=== PATIENT | female | born 1945 | race Caucasian/White ===

== ENCOUNTER → 2016-10-10 | Outpatient (CLI) | payer OTHER, MEDICARE ==
[~2016-10-10] MED LIST: ALPR-411 PO; DOMPERIDONE 10 MG; FEXO1TAB49 PO; GABA-112 PO; MULT-614 PO; OMEP20CA59 PO; PROP10TA7 PO; SERT50TA PO; TRIA1SPR4 NAE; ZOLE5INJ IV.
--- NOTE | 2016-10-10 14:49 | DIAGNOSTIC IMAGING REPORT ---
SINUSES MIN 3 VIEWS ROUTINE CLINICAL HISTORY: J32.9 Sinusitis COMPARISON STUDY: None FINDINGS: All major sinuses are clear. Osseous structures are intact. IMPRESSION: Normal study Electronically signed by: Derian Velasco M.D. 10/10/2016 2:48 PM Dictated Date/Time: 10/10/2016 2:47 PM
== END | disposition home or self-care (01) ==
LOC: C.RAD1850 14:36
PROVIDERS: ATTEND Internal Medicine
DX: J32.9 Chronic sinusitis, unspecified (principal)

== ENCOUNTER → 2017-02-23 | Outpatient (CLI) | payer OTHER, MEDICARE ==
--- NOTE | 2017-02-23 12:07 | DIAGNOSTIC IMAGING REPORT ---
LUMBAR SPINE W/O CONTRAST CLINICAL HISTORY: 71 years-old Female presenting with SPINAL STENOSIS; LUMBAR RADICULOPATHY. TECHNIQUE: Multisequence, multiplanar MR imaging of the lumbar spine was performed without the use of intravenous contrast. IV contrast: None. COMPARISON: 01/31/2015. FINDINGS: Vertebral bodies maintain normal height, alignment, and bone marrow signal intensity with the exception of sclerotic endplate changes anteriorly at L2-3. Intervertebral disc height loss at L2-3 and desiccation at L3-4. Mild multilevel degenerative changes detailed below: T12-L1: Normal. L1-2: Normal. L2-3: Anterior osteophytosis and disc bulge. Mild bilateral neural foraminal narrowing results at L2-3 with possible abutment of the exiting L2 nerve roots. Effacement of the ventral thecal sac without impingement of the cauda equina. L3-4: Minimal disc bulge results in mild right neural foraminal narrowing and possible abutment of the exiting right L3 nerve root. L4-5: Mild disc bulge in combination with ligamentum flavum thickening at L4-5 results in effacement of the ventral and posterior thecal sac without evidence of cauda equina impingement. Mild right and moderate left neural foraminal narrowing. Abutment of the bilateral exiting L4 nerve roots. L5-S1: Normal. Spinal cord ends in good position at the superior endplate of L1. Cauda equina normal. No bony or paraspinal edema. Paraspinal soft tissues within normal limits. IMPRESSION: Multilevel degenerative changes. Spinal stenosis without evidence of cauda equina impingement. Varying degrees of neural foraminal narrowing most severe at L4-5 further detailed above. Electronically signed by: Avi Styles M.D. 02/23/2017 12:06 PM Dictated Date/Time: 02/23/2017 11:58 AM
== END | disposition home or self-care (01) ==
LOC: C.MRIBC 10:38
PROVIDERS: ATTEND Anesthesiology
DX: M54.16 Radiculopathy, lumbar region (principal); M48.06 Spinal stenosis, lumbar region

== ENCOUNTER → 2017-04-17 | Outpatient (CLI) | payer OTHER, MEDICARE ==
[2017-04-17 17:39] LABS: BASO % 0.1 %; BASO ABS # 0.01 K/uL (0-0.2); COMPLETE YES; EOS % 2.1 %; HEMATOCRIT 38.6 % (37-47); IG% 0.2 %; LYMPH % 32.4 %; LYMPH ABS # 2.82 K/uL (1.2-3.4); MEAN CELL VOLUME 90.2 fL (80-100); MEAN CORPUSCULAR HEMOGLOBIN 28.5 pg (25-34); MEAN CORPUSCULAR HGB CONC 31.6 g/dl (32-36); MEAN PLATELET VOLUME 9.9 fL (7.4-10.4); MONO % 9.9 %; NEUT % 55.3 %; PLATELET COUNT 349 K/uL (130-400); RED BLOOD COUNT 4.28 M/uL (4.2-5.4); WHITE BLOOD COUNT 8.71 K/uL (4.8-10.8)
[2017-04-17 18:54] LABS: LYME DISEASE AB IGG NEG (NEG)
[2017-04-17 18:57] LABS: LYME DISEASE AB IGM EQUIVOCAL (NEG)
[2017-04-21 23:35] LABS: 18KDIGG BAND NONREACTIVE (NONREACTIVE); 23KDIGG BAND NONREACTIVE (NONREACTIVE); 23KDIGM BAND NONREACTIVE (NONREACTIVE); 28KDIGG BAND NONREACTIVE (NONREACTIVE); 30KDIGG BAND REACTIVE (NONREACTIVE); 39KDIGG BAND NONREACTIVE (NONREACTIVE); 39KDIGM BAND NONREACTIVE (NONREACTIVE); 41KDIGG BAND NONREACTIVE (NONREACTIVE); 41KDIGM BAND NONREACTIVE (NONREACTIVE); 45KDIGG BAND NONREACTIVE (NONREACTIVE); 58KDIGG BAND NONREACTIVE (NONREACTIVE); 66KDIGG BAND NONREACTIVE (NONREACTIVE); 93KDIGG BAND NONREACTIVE (NONREACTIVE)
== END | disposition home or self-care (01) ==
LOC: C.LAB1850 16:35
PROVIDERS: ATTEND Internal Medicine
DX: M25.50 Pain in unspecified joint (principal)

== ENCOUNTER → 2017-06-17 | Outpatient (CLI) | payer OTHER, MEDICARE ==
[~2017-06-17] MED LIST changes: -GABA-112 PO
[2017-06-17 13:31] LABS: URINE APPEARANCE CLOUDY (CLEAR); URINE BILIRUBIN NEG (NEG); URINE COLOR DK YELLOW; URINE EPITHELIAL CELL AUTO 20-30 /lpf (0-5); URINE NITRITE NEG (NEG); URINE PH 6.5 (4.5-7.5); URINE SPECIFIC GRAVITY 1.022 (1.000-1.030); UROBILINOGEN NEG (NEG)
[2017-06-17 13:36] LABS: MANUAL MICROSCOPIC REQUIRED? NO; REVIEW REQ? NO
== END | disposition home or self-care (01) ==
LOC: C.LAB1850 11:45
PROVIDERS: ATTEND Internal Medicine
DX: N39.0 Urinary tract infection, site not specified (principal)

== ENCOUNTER → 2017-08-20 | Outpatient (CLI) | payer OTHER, MEDICARE ==
[2017-08-20 14:03] LABS: URINE APPEARANCE CLOUDY (CLEAR); URINE BACTERIA AUTO NEG (NEG); URINE BILIRUBIN NEG (NEG); URINE BLOOD HGB 2+ (NEG); URINE COLOR DK YELLOW; URINE GLUCOSE(DIPSTICK) NEG (NEG); URINE KETONES NEG (NEG); URINE LEUKOCYTE ESTERASE LARGE (NEG); URINE NITRITE NEG (NEG); URINE PROTEIN(DIPSTICK) TRACE (NEG); URINE RBC AUTO >30 /hpf (0-4); URINE SPECIFIC GRAVITY 1.023 (1.000-1.030); URINE WBC AUTO >30 /hpf (0-5); UROBILINOGEN NEG (NEG)
[2017-08-20 14:12] LABS: MANUAL MICROSCOPIC REQUIRED? NO; REVIEW REQ? NO
== END | disposition home or self-care (01) ==
LOC: C.LAB1850 11:29
DX: N39.0 Urinary tract infection, site not specified (principal)

== ENCOUNTER → 2017-09-25 | Outpatient (CLI) | payer OTHER, MEDICARE ==
[~2017-09-25] MED LIST changes: -DOMPERIDONE 10 MG; +DOMPERIDONE 10 MG PO
[2017-09-25 16:33] LABS: BASO % 0.1 %; BASO ABS # 0.01 K/uL (0-0.2); EOS % 1.7 %; EOS ABS # 0.12 K/uL (0-0.5); HEMOGLOBIN 12.3 g/dL (12.0-16.0); IG# 0.01 K/uL (0.00-0.02); LYMPH % 38.8 %; LYMPH ABS # 2.81 K/uL (1.2-3.4); MEAN CELL VOLUME 87.6 fL (80-100); MEAN CORPUSCULAR HEMOGLOBIN 28.3 pg (25-34); MEAN CORPUSCULAR HGB CONC 32.4 g/dl (32-36); MEAN PLATELET VOLUME 10.1 fL (7.4-10.4); MONO ABS # 0.65 K/uL (0.11-0.59); NEUT % 50.3 %; NEUT ABS # 3.65 K/uL (1.4-6.5); PLATELET COUNT 327 K/uL (130-400); WHITE BLOOD COUNT 7.25 K/uL (4.8-10.8)
[2017-09-25 17:14] LABS: ALBUMIN 3.7 gm/dl (3.4-5.0); BLOOD UREA NITROGEN 20 mg/dl (7-18); CALCIUM 9.2 mg/dl (8.5-10.1); CARBON DIOXIDE 28 mmol/L (21-32); CREATININE 0.52 mg/dl (0.60-1.20); GLUCOSE 73 mg/dl (70-99); POTASSIUM 3.6 mmol/L (3.5-5.1); SODIUM 139 mmol/L (136-145)
== END | disposition home or self-care (01) ==
LOC: C.LAB1850 14:56
PROVIDERS: ATTEND Internal Medicine
DX: M79.1 Myalgia (principal); M81.0 Age-related osteoporosis without current pathological fracture; Z78.0 Asymptomatic menopausal state

== ENCOUNTER → 2017-09-30 | Day surgery (SDC) | payer OTHER, MEDICARE ==
[~2017-09-30] VITALS: Ht 152.4 cm; Wt 54.6 kg
[~2017-09-30] MED LIST changes: +GENERAL ORDER PROBLEM SCH; +ZOLEDRONIC ACID INJ 5 MG in EMPTY BAG 0 ML IV SCH
[2017-09-30 11:22] VITALS: BP 113/68; PULSE 81; TEMP 36.5; O2SAT 96; Ht 152.4 cm; Wt 54.6 kg
== END | disposition home or self-care (01) ==
LOC: C.MTU 11:09
PROVIDERS: ATTEND Internal Medicine
DX: M81.0 Age-related osteoporosis without current pathological fracture (principal)

== ENCOUNTER → 2017-11-24 | Day surgery (SDC) | payer OTHER, MEDICARE ==
[2017-10-20 09:22] VITALS: Ht 152.4 cm; Wt 54.5 kg
[~2017-11-24] VITALS: Ht 152.4 cm; Wt 54.5 kg
[~2017-11-24] MED LIST changes: +500ML BSS 0.3ML EPI 1:1000PF IRRIG ONE; +ACETAMINOPHEN 325 MG TAB PO PRN; +AMVISC PLUS 0.8ML SYRINGE INT OCU ONE; +ATROPINE SULFATE 0.1 MG/ML 5ML SYR IV PRN; +BSS FLUSH ONE; -DOMPERIDONE 10 MG PO; +DOMPERIDONE PO; +EpHEDrine SULFATE INJ 50 MG/ML AMP IV PRN; +EpINEphrine INJ 1MG/ML AMP 1 MG/ML AMP ONE; -GENERAL ORDER PROBLEM SCH; +GLUC1TAB94 PO; +LACTATED RINGER'S 1000ML 500 ML IV SCH; +LIDOCAINE 3.5% OPH GEL PER APPLICATION CHARGE ONE; +LIDOCAINE HCL 1% MPF 2 ML VIAL ONE; +MELO7.5T5 PO; +MIDAZOLAM HCL 1 MG/ML 2ML VIAL ONE; -MULT-614 PO; +MULT60CA PO; +OCUCOAT 1 ML SOLN IO ONE; -OMEP20CA59 PO; +PHENYLEPHRINE HCL 10% OP SOLN PER DROP CHARGE OPR SCH; +POVIDONE-IODINE OP SOLN 30 ML BTL ONE; +PRLSR20 PO; -PROP10TA7 PO; +PROP20TA67 PO; +PROPARACAINE 0.5% OP SOLN PER DROP CHARGE OPR SCH; +SERT-234 PO; -SERT50TA PO; +TOBRAMYCIN/DEXAMETHASONE OPH OINT PER APPLN CHARGE ONE; -TRIA1SPR4 NAE; +TRIA1SPR9 NAE; +ZOLE5INJ IV; -ZOLE5INJ IV.; -ZOLEDRONIC ACID INJ 5 MG in EMPTY BAG 0 ML IV SCH
[2017-11-24] MEDS: PHENYLEPHRINE HCL 2.5% OP SOLN PER DROP CHARGE OPR SCH ×2 (06:59→07:04)
[2017-11-24] MEDS: TROPICAMIDE 1% OP SOLN PER DROP CHARGE OPR SCH ×2 (07:00→07:05)
[2017-11-24] MEDS: CYCLOPENTOLATE HCL 1% OP SOLN PER DROP CHARGE OPR SCH ×2 (07:01→07:06)
[2017-11-24] MEDS: KETOROLAC 0.5% OP SOLN PER DROP CHARGE OPR SCH ×2 (07:02→07:07)
[2017-11-24] MEDS: GATIFLOXACIN OP SOLN PER DROP CHARGE OPR SCH ×2 (07:03→07:15)
--- NOTE | 2017-11-24 07:21 | History & Physical Bridge - SC ---
H&P Re-Evaluation Bridge Note: I have examined the patient, reviewed the History & Physical and in the interval since the performance of the History & Physical I have noted the following changes of clinical significance: Diagnosis: Right Cataract Procedure: Right Cataract Removal with Lens Implant No changes noted
--- NOTE | 2017-11-24 08:02 | [facility] Operative Report ---
Operative Report Date of Service Nov 24, 2017. Operative Report 1. PREOPERATIVE DIAGNOSIS: Cataract of the right eye. 2. POSTOPERATIVE DIAGNOSIS: Same. 3. PROCEDURE: Phacoemulsification with intraocular lens implantation of the right eye. SURGEON: Dr. Kike Munoz. ANESTHESIA: Topical Lidocaine gel, 1% Non- Preserved intracameral Lidocaine, and monitored intravenous sedation. INDICATIONS FOR THE PROCEDURE: The patient is a 72 - year-old female with a history of cataract of the right eye causing significant visual impairment. The details of the proposed procedure were explained to the patient who asked appropriate questions and following discussion of all risks, benefits and alternatives agreed to have the procedure done. 4. OPERATION AND FINDINGS: DESCRIPTION OF PROCEDURE: After informed consent was obtained, the patient was brought to the Operating Room at the [facility]. The patient was placed in a supine position and then the right eye was prepped and draped in the usual sterile fashion for intraocular surgery. A drop of topical Lidocaine gel was placed in the operative eye. A wire lid speculum was then placed in the fornices. A corneal paracentesis was then created temporally. The Non-Preserved Lidocaine was then instilled into the anterior chamber. The anterior chamber was then pressurized with viscoelastic. A 2.0 mm clear corneal incision was then created temporally. A cystotome was inserted into the anterior chamber and used to create a tear in the anterior lens capsule. This capsular tear was then used to create a small flap and the flap was dragged in a counterclockwise direction in order to create a continuous curvilinear capsulorrhexis. Hydrodissection was accomplished with balanced salt solution. Phacoemulsification of the lens nucleus was then performed in a standard [id number] technique. The phaco time was 28 seconds with an average power of 13 %. The remaining cortical material was removed using irrigation aspiration. The capsular bag was then filled with viscoelastic. A B[employer]ch [employer] Lomb MI60L +23.0 diopters lens was then loaded into the injector and injected into the capsular bag. The remaining viscoelastic was removed with the irrigation aspiration handpiece. The wound was hydrated and then checked and found to be watertight. The intraocular pressure was checked and found to be adequate. The wire lid speculum was removed and the patient's face was cleaned and dried. TobraDex ointment was placed in the inferior fornix. The patient was discharged to the Recovery Room having tolerated the procedure well. There were no complications. The patient will be seen tomorrow in the office for follow-up. I attest to the content of the Intraoperative Record and any orders documented therein. Any exceptions are noted below.
--- NOTE | 2017-11-24 08:03 | Discharge Instructions-SurgCtr ---
Discharge Instructions Date of Service Nov 24, 2017. Visit Reason for Visit: Right Cataract Discharge Discharge Diagnosis / Problem: cataract Discharge Goals Goal(s): Improve function Activity Recommendations Activity Limitations: per Instructions/Follow-up section Anesthesia . Post Anesthesia Instructions: If you have had General Anesthesia or IV Sedation: * Do not drive today. * Resume driving when surgeon permits. * Do not make important decisions or sign legal documents today. * Call surgeon for: 1. Temperature elevations greater than 101 degrees F. 2. Uncontrollable pain. 3. Excessive bleeding. 4. Persistent nausea and vomiting. 5. Medication intolerance (nausea, vomiting or rash). * For nausea and vomiting use only clear liquids such as: tea, soda, bouillon until nausea subsides, then gradually increase diet as tolerated. * If you have any concerns or questions, call your surgeon's office. If physician is unavailable and it is an emergency, call 911 or go to the nearest emergency room. . Diet Recommendations Home Diet: resume previous diet Procedures Procedures Performed: Right Cataract Phacoemulsification with Intraocular Lens Implant Pending Studies Studies pending at discharge: no Medical Emergencies . Who to Call and When: Medical Emergencies: If at any time you feel your situation is an emergency, please call 911 immediately. . Non-Emergent Contact Non-Emergency issues call your: Television Maintenance Worker . . "Provider Documentation" section prepared by Kike Munoz. .
[2017-11-24 08:06] VITALS: TEMP 36.5
--- NOTE | 2017-11-24 08:20 | Anesthesia Progress Nt - [facility] ---
Anesthesia Post Op Note Date & Time Nov 24, 2017 at 08:19 Vital Signs Pain Intensity: 0 Vital Signs Past 12 Hours Date Time Temp Pulse Resp B/P (MAP) Pulse Ox O2 Delivery O2 Flow Rate FiO2 11/24/17 08:06 36.5 80 18 108/70 (83) 94 Room Air 11/24/17 06:44 36.3 79 16 108/72 (84) 94 Room Air Notes Mental Status: alert / awake / arousable, participated in evaluation Pt Amnestic to Procedure: Yes Nausea / Vomiting: adequately controlled Pain: adequately controlled Airway Patency, RR, SpO2: stable & adequate BP & HR: stable & adequate Hydration State: stable & adequate Anesthetic Complications: no major complications apparent
[2017-11-24 08:34] VITALS: BP 117/74; PULSE 79; O2SAT 94
== END | disposition home or self-care (01) ==
LOC: X.SURG 06:23
PROVIDERS: ATTEND Ophthalmology
DX: H26.9 Unspecified cataract (principal); M54.30 Sciatica, unspecified side; G25.0 Essential tremor; K31.84 Gastroparesis; M81.0 Age-related osteoporosis without current pathological fracture; F41.9 Anxiety disorder, unspecified; R53.83 Other fatigue; G20 Parkinson's disease; J32.9 Chronic sinusitis, unspecified; Z88.6 Allergy status to analgesic agent; J45.909 Unspecified asthma, uncomplicated; Z86.19 Personal history of other infectious and parasitic diseases; K21.9 Gastro-esophageal reflux disease without esophagitis; Z90.710 Acquired absence of both cervix and uterus; Z90.89 Acquired absence of other organs; Z87.891 Personal history of nicotine dependence; Z79.899 Other long term (current) drug therapy; Z91.040 Latex allergy status

== ENCOUNTER → 2017-12-08 | Day surgery (SDC) | payer OTHER, MEDICARE ==
[2017-12-02 07:37] VITALS: Ht 152.4 cm; Wt 54.5 kg
[~2017-12-08] VITALS: Ht 152.4 cm; Wt 54.5 kg
[~2017-12-08] MED LIST changes: +PHENYLEPHRINE HCL 10% OP SOLN PER DROP CHARGE OPL SCH; -PHENYLEPHRINE HCL 10% OP SOLN PER DROP CHARGE OPR SCH; +PROPARACAINE 0.5% OP SOLN PER DROP CHARGE OPL SCH; -PROPARACAINE 0.5% OP SOLN PER DROP CHARGE OPR SCH
[2017-12-08] MEDS: PHENYLEPHRINE HCL 2.5% OP SOLN PER DROP CHARGE OPL SCH ×2 (09:14→09:28)
[2017-12-08] MEDS: TROPICAMIDE 1% OP SOLN PER DROP CHARGE OPL SCH ×2 (09:19→09:29)
[2017-12-08] MEDS: CYCLOPENTOLATE HCL 1% OP SOLN PER DROP CHARGE OPL SCH ×2 (09:21→09:30)
[2017-12-08] MEDS: KETOROLAC 0.5% OP SOLN PER DROP CHARGE OPL SCH ×2 (09:22→09:31)
[2017-12-08] MEDS: GATIFLOXACIN OP SOLN PER DROP CHARGE OPL SCH ×2 (09:23→09:34)
--- NOTE | 2017-12-08 09:42 | History & Physical Bridge - SC ---
H&P Re-Evaluation Bridge Note: I have examined the patient, reviewed the History & Physical and in the interval since the performance of the History & Physical I have noted the following changes of clinical significance: No changes noted
--- NOTE | 2017-12-08 10:30 | [facility] Operative Report ---
Operative Report Date of Service December 08, 2017. Operative Report 1. PREOPERATIVE DIAGNOSIS: Cataract of the left eye. 2. POSTOPERATIVE DIAGNOSIS: Same. 3. PROCEDURE: Phacoemulsification with intraocular lens implantation of the left eye. SURGEON: Dr. Kike Munoz. ANESTHESIA: Topical Lidocaine gel, 1% Non- Preserved intracameral Lidocaine, and monitored intravenous sedation. INDICATIONS FOR THE PROCEDURE: The patient is a 72 - year-old female with a history of cataract of the left eye causing significant visual impairment. The details of the proposed procedure were explained to the patient who asked appropriate questions and following discussion of all risks, benefits and alternatives agreed to have the procedure done. 4. OPERATION AND FINDINGS: DESCRIPTION OF PROCEDURE: After informed consent was obtained, the patient was brought to the Operating Room at the [facility]. The patient was placed in a supine position and then the left eye was prepped and draped in the usual sterile fashion for intraocular surgery. A drop of topical Lidocaine gel was placed in the operative eye. A wire lid speculum was then placed in the fornices. A corneal paracentesis was then created temporally. The Non-Preserved Lidocaine was then instilled into the anterior chamber. The anterior chamber was then pressurized with viscoelastic. A 2.0 mm clear corneal incision was then created temporally. A cystotome was inserted into the anterior chamber and used to create a tear in the anterior lens capsule. This capsular tear was then used to create a small flap and the flap was dragged in a counterclockwise direction in order to create a continuous curvilinear capsulorrhexis. Hydrodissection was accomplished with balanced salt solution. Phacoemulsification of the lens nucleus was then performed in a standard [id number] technique. The phaco time was 19 seconds with an average power of 11 %. The remaining cortical material was removed using irrigation aspiration. The capsular bag was then filled with viscoelastic. A Bausch & Lomb MI60L +23.0 diopters lens was then loaded into the injector and injected into the capsular bag. The remaining viscoelastic was removed with the irrigation aspiration handpiece. The wound was hydrated and then checked and found to be watertight. The intraocular pressure was checked and found to be adequate. The wire lid speculum was removed and the patient's face was cleaned and dried. TobraDex ointment was placed in the inferior fornix. The patient was discharged to the Recovery Room having tolerated the procedure well. There were no complications. The patient will be seen tomorrow in the office for follow-up. I attest to the content of the Intraoperative Record and any orders documented therein. Any exceptions are noted below.
--- NOTE | 2017-12-08 10:31 | Discharge Instructions-SurgCtr ---
Discharge Instructions Date of Service December 08, 2017. Visit Reason for Visit: Cataract Left Eye Discharge Discharge Diagnosis / Problem: cataract Discharge Goals Goal(s): Improve function Activity Recommendations Activity Limitations: per Instructions/Follow-up section Anesthesia . Post Anesthesia Instructions: If you have had General Anesthesia or IV Sedation: * Do not drive today. * Resume driving when surgeon permits. * Do not make important decisions or sign legal documents today. * Call surgeon for: 1. Temperature elevations greater than 101 degrees F. 2. Uncontrollable pain. 3. Excessive bleeding. 4. Persistent nausea and vomiting. 5. Medication intolerance (nausea, vomiting or rash). * For nausea and vomiting use only clear liquids such as: tea, soda, bouillon until nausea subsides, then gradually increase diet as tolerated. * If you have any concerns or questions, call your surgeon's office. If physician is unavailable and it is an emergency, call 911 or go to the nearest emergency room. . Diet Recommendations Home Diet: resume previous diet Procedures Procedures Performed: Left Cataract Phacoemulsification With Intraocular Lens Implant Pending Studies Studies pending at discharge: no Medical Emergencies . Who to Call and When: Medical Emergencies: If at any time you feel your situation is an emergency, please call 911 immediately. . Non-Emergent Contact Non-Emergency issues call your: Hood Fitter . . "Provider Documentation" section prepared by Kike Munoz. .
[2017-12-08 10:33] VITALS: TEMP 36.4
--- NOTE | 2017-12-08 10:36 | Anesthesia Progress Nt - [facility] ---
Anesthesia Post Op Note Date & Time December 08, 2017 at 10:36 Vital Signs Pain Intensity: 0 Vital Signs Past 12 Hours Date Time Temp Pulse Resp B/P (MAP) Pulse Ox O2 Delivery O2 Flow Rate FiO2 12/08/17 10:33 36.4 72 16 106/64 (78) 94 Room Air 12/08/17 09:04 36.4 78 18 108/70 (83) 95 Room Air Notes Mental Status: alert / awake / arousable, participated in evaluation Pt Amnestic to Procedure: Yes Nausea / Vomiting: adequately controlled Pain: adequately controlled Airway Patency, RR, SpO2: stable & adequate BP & HR: stable & adequate Hydration State: stable & adequate Anesthetic Complications: no major complications apparent
[2017-12-08 10:55] VITALS: BP 112/69; PULSE 82; O2SAT 95
== END | disposition home or self-care (01) ==
LOC: X.SURG 08:18
PROVIDERS: ATTEND Ophthalmology
DX: H26.9 Unspecified cataract (principal); G25.0 Essential tremor; K31.84 Gastroparesis; M81.0 Age-related osteoporosis without current pathological fracture; F41.9 Anxiety disorder, unspecified; R53.83 Other fatigue; M54.30 Sciatica, unspecified side; M54.9 Dorsalgia, unspecified; M25.50 Pain in unspecified joint; K21.9 Gastro-esophageal reflux disease without esophagitis; Z87.440 Personal history of urinary (tract) infections; J32.9 Chronic sinusitis, unspecified; Z88.6 Allergy status to analgesic agent; Z91.040 Latex allergy status

== ENCOUNTER → 2018-02-18 | Outpatient (CLI) | payer OTHER, MEDICARE ==
[~2018-02-18] MED LIST changes: -500ML BSS 0.3ML EPI 1:1000PF IRRIG ONE; -ACETAMINOPHEN 325 MG TAB PO PRN; -AMVISC PLUS 0.8ML SYRINGE INT OCU ONE; -ATROPINE SULFATE 0.1 MG/ML 5ML SYR IV PRN; -BSS FLUSH ONE; -EpHEDrine SULFATE INJ 50 MG/ML AMP IV PRN; -EpINEphrine INJ 1MG/ML AMP 1 MG/ML AMP ONE; -LACTATED RINGER'S 1000ML 500 ML IV SCH; -LIDOCAINE 3.5% OPH GEL PER APPLICATION CHARGE ONE; -LIDOCAINE HCL 1% MPF 2 ML VIAL ONE; -MIDAZOLAM HCL 1 MG/ML 2ML VIAL ONE; -OCUCOAT 1 ML SOLN IO ONE; -PHENYLEPHRINE HCL 10% OP SOLN PER DROP CHARGE OPL SCH; -POVIDONE-IODINE OP SOLN 30 ML BTL ONE; -PROPARACAINE 0.5% OP SOLN PER DROP CHARGE OPL SCH; -TOBRAMYCIN/DEXAMETHASONE OPH OINT PER APPLN CHARGE ONE
--- NOTE | 2018-02-18 14:24 | DIAGNOSTIC IMAGING REPORT ---
LUMBAR SPINE W/O CONTRAST HISTORY: Peripheral neuropathy RADICULOPATHY TECHNIQUE: Multiplanar multisequence MRI of the lumbar spine was performed without the use of contrast. COMPARISON: 02/23/2017 FINDINGS: For the purpose of the report the L5-S1 disc space will be located on axial image 23 of 25. Normal signal characteristics of the vertebral bodies. Moderate degenerative disc change at the entire lumbar region. This is most significant at the L2-L3 level. Mild reactive edema of the inferior endplate of L2. Degenerative findings are slightly progressive compared to the prior study. L1-L2: Minimal broad-based disc bulge. L2-L3: Mild broad-based disc herniation. Mild impact anterior thecal sac with mild narrowing of the neuroforamina bilaterally. Findings are slightly progressive compared to the prior exam. L3-L4: Broad-based bulging disc with mild multifactorial narrowing of spinal canal. No significant change in the prior study. L4-L5: Moderate multifactorial narrowing of the spinal canal. Mild broad-based disc herniation. Findings are slightly progressive compared to the prior exam. L5-S1: Mild osteophytic narrowing left neuroforamina. Moderate degenerative change posterior facets. IMPRESSION: 1. Moderate degenerative disc change of the entire lumbar region slightly progressive from the prior exam. 2. Moderate multifactorial narrowing of the spinal canal at L4-L5 and moderately progressive from the prior study. 3. Broad-based bulging disc at all levels with mild multifactorial narrowing of the spinal canal at L2-L3 unchanged from the prior exam. The above report was generated using voice recognition software. It may contain grammatical, syntax or spelling errors. Electronically signed by: Derian Velasco M.D. 02/18/2018 2:23 PM Dictated Date/Time: 02/18/2018 2:15 PM
== END | disposition home or self-care (01) ==
LOC: C.MRI 11:34
PROVIDERS: ATTEND Internal Medicine
DX: M19.90 Unspecified osteoarthritis, unspecified site (principal); M54.17 Radiculopathy, lumbosacral region; M99.73 Connective tissue and disc stenosis of intervertebral foramina of lumbar region

== ENCOUNTER → 2018-03-18 | Outpatient (CLI) | payer OTHER, MEDICARE | END | disposition home or self-care (01) | LOC: C.LAB1850 11:22 | PROVIDERS: ATTEND Internal Medicine | DX: N39.0 Urinary tract infection, site not specified (principal) ==

== ENCOUNTER 2025-07-29 13:28 | Inpatient (IN) ==
[2025-07-29 14:31] LABS: Hematocrit (blood only) 35.0 % (37.0-47.0); Hemoglobin 11.4 g/dL (12.0-16.0); Immature Granulocytes # (auto) 0.03 K/uL (0.01-0.20); Immature Granulocytes % (auto) 0.3 %; Mean Corpuscular Hemoglobin 29.7 pg (25.0-34.0); Mean Corpuscular Volume 91.1 fL (80.0-100.0); Platelet Count 432 K/uL (130-400); RDW Standard Deviation 45.3 fL (36.4-46.3); Red Blood Count 3.84 M/uL (4.20-5.40); White Blood Count 8.66 K/ul (4.8-10.8)
[2025-07-29 14:47] LABS: Anion Gap 11.0 (3-11); Blood Urea Nitrogen 16.0 mg/dl (6-23); Calcium 8.8 mg/dl (8.6-10.3); Carbon Dioxide 25.0 mmol/L (21-32); Chloride 102.0 mmol/L (98-107); Creatinine Clr Calc Pharmacy 100.7 ml/min; Glucose 94.0 mg/dl (70-99(Fasting)); Potassium 3.5 mmol/L (3.5-5.1); Sodium 138.0 mmol/L (136-145)
[2025-07-29 15:02] LABS: Thyroid Stimulating Hormone 2.906 uIu/ml (0.300-4.500)
[2025-07-29 15:17] LABS: Alanine Aminotransferase 3.0 U/L (7-52); Albumin Globulin Ratio 1.4 (0.9-2); Albumin Level 4.1 gm/dl (3.4-5.0); Alkaline Phosphatase 88.0 U/L (34-104); Bilirubin,Total 0.6 mg/dl (0.2-1.0); Globulin 2.9 gm/dl (2.5-4.0); Total Protein 7.0 gm/dl (6.0-8.3)
--- NOTE | 2025-07-29 15:49 | Emergency Department Note ---
Impression & Plan Ambulatory dysfunction, Parkinsonism, Muscle weakness ED Provider Note NAME: NILDA CAVANAUGH AGE: 79 SEX: F : 1945 ARRIVES VIA: Ambulance INFORMANT: Patient, ED PROVIDER(S): Ger Gatica MD CHIEF COMPLAINT: Weakness HPI: This is a an 79-year-old female presenting for weakness. Patient was recently seen for a traumatic subdural on 07/12. She was transferred to [facility] for further evaluation. She had no surgical intervention and observation. She was discharged to [facility] and returned home yesterday. She felt that she was progressing well at rehab but then worsened prior to discharge. She notes that she does not feel safe or comfortable at home as she is having difficulty walking or doing her daily activities. She reports increased dizziness otherwise. She reports no weakness of her arms, legs, confusion, facial droop. She notes no chest pain, shortness of breath, fever, chills, pleurisy. ROS: See above HPI for pertinent positives & negatives. A total of 10 systems reviewed and were otherwise negative. PAST MEDICAL HISTORY: See Below PAST SURGICAL HISTORY: See Below FAMILY HISTORY: See Below SOCIAL HISTORY: See Below HOME MEDICATIONS: See Below ALLERGIES: See Below VITALS: See Below PHYSICAL EXAMINATION: General: resting comfortably in no acute distress Head: Normocephalic and atraumatic Eyes: Normal inspection, extraocular muscles intact Ear, nose, throat: Normal external exam Neck: Normal range of motion Respiratory: lungs clear to auscultation bilaterally Cardiovascular: Regular rate/rhythm, no murmur GI: soft, nontender, no guarding or rebound Extremities: nontender, moves all extremities Neuro: The patient awake and alert, appropriately conversive, no focal deficits, symmetric faces, baseline tremor Skin: Warm, dry, and intact MEDICAL DECISION MAKING: this is an 79-year-old female presenting for weakness. Patient reports clinically well, no neurologic deficits on my examination. She states she is having trouble with her ADLs due to increasing weakness. She has no new or worsening symptoms otherwise upon evaluation and history. - Bloodwork is reviewed showing no significant leukocytosis, anemia, electrolyte or creatinine abnormality - Urinalysis negative for UTI -Will admit the patient at this time due to her ambulatory dysfunction and recent subdural Differential diagnosis: Weakness, dehydration, UTI, anemia, failure to thrive Diagnostics interpreted by me: ECG: ECG independently interpreted by me with normal sinus rhythm, rate of 99, normal [place], normal QRS, normal QTc, no ST segment elevations consistent with STEMI criteria Cardiac Monitoring: An order was placed for continuous cardiac monitoring. The monitor shows a rate of 93 with sinus rhythm. Past Med/Surg History Problem List (Updated 07/29/25 @ 18:00 by Ger Gatica MD) Ambulatory dysfunction (Acute) Chronic iron deficiency anemia Coccydynia Trochanteric bursitis of left hip Spinal stenosis of lumbar region Foot pain Chronic pain of lower extremity, bilateral Anemia Right leg swelling Right knee DJD Chronic pain of right knee Knee pain Cerumen impaction Ear pain Post-nasal drip Sinus pressure Chronic sinusitis Anemia, mild Lumbar facet arthropathy Parkinsonism (Chronic) Recurrent urinary tract infection Muscle weakness (Acute) Gastroparesis (Acute) Depression with anxiety (Acute) Idiopathic polyneuropathy Lumbar radiculopathy (Chronic) GERD (gastroesophageal reflux disease) (Chronic) HTN (hypertension) (Chronic) Abnormality of gait due to impairment of balance SOB (shortness of breath) on exertion (Chronic) Abnormal CXR Opacity of lung on imaging study (Chronic) Choking due to food (regurgitated) Dysphagia (Chronic) Bilateral hip pain (Chronic) Abnormal CT of the chest Bronchiectasis (Chronic) Bilateral nephrolithiasis (Chronic) Insomnia (Chronic) Encounter for screening for lipid disorder Osteopenia Impacted cerumen of left ear Leg pain Hip pain Coronary artery calcification Gait abnormality Current use of proton pump inhibitor Venous insufficiency Chronic sinus complaints Chronic sinusitis of both maxillary sinuses Medical History Synovial cyst CURRENT LOWER BACK History of anesthesia reaction WITH BACK SYNOVIAL CYST SX - FACE RED D/T ADHESIVE ON MASK ([place], 2020) Dry eye Macular degeneration Gastroparesis SOB (shortness of breath) on exertion PT REPORTS SOB WITH PAIN Cough OCC - "NOT BADLY" - NON PRODUCTIVE Bronchiectasis AND PSUEDOMONAS PER PT - DR HARGROVE 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 REMOTE HX History of lumbar surgery synovial cyst removal and bone spur S/P epidural steroid injection History of colonoscopy History of left cataract surgery History of right cataract surgery History of tonsillectomy and adenoidectomy History of hysterectomy History of tubal ligation Family History Grandfather (Paternal) Family history of colon cancer Father Heart disease Other Family history of colon cancer in father No family history of adverse response to anesthesia No family history of bleeding disorder Social History Smoking Status: Never smoker Tobacco Type: Cigarettes Age Started Using Tobacco: 19; Age Quit Using Tobacco: 44; packs per day: 2; Second Hand Exposure: No; Do You Dip or Chew Tobacco: No; Hx Alcohol Use: No Hx Substance Use: No Preferred Language: German Communication Ability: Effective Visual Impairment: Limited Hearing Ability: Normal 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: No Beliefs That Will Affect Care: None marital status: Current Living Situation: Alone current occupational status: retired Feels Safe at Home: Yes Childhood Exposure to Second-Hand Smoke: No Diet: regular caffeine: Yes Dental Care, Regularly: Yes Physical Activity Frequency: Does not Exercise Seatbelt Use: always Sunscreen Use: No Assistive Devices: Glasses and Walker Allergies Allergies Allergy/AdvReac Type Severity Reaction Status Date / Time latex Allergy Intermediate RASH Verified 07/29/25 16:02 rotigotine [From Neupro] Allergy Intermediate Hives Verified 07/29/25 16:02 grass pollen-perennial rye, Allergy Mild RUNNY NOSE Verified 07/29/25 16:02 standar mold Allergy Mild RUNNY NOSE Verified 07/29/25 16:02 celecoxib [From Celebrex] Allergy Unknown PT DOESN'T Verified 07/29/25 16:02 REMEMBER trihexyphenidyl Allergy Unknown PT DOESN'T Verified 07/29/25 16:02 REMEMBER metoclopramide AdvReac Severe PARKINSONIS Verified 07/29/25 16:02 M aspirin AdvReac Intermediate UPSET Verified 07/29/25 16:02 STOMACH gabapentin AdvReac Intermediate dizziness Verified 07/29/25 16:02 adhesive tape AdvReac Mild irritated Verified 07/29/25 16:02 skin Home Meds Home Medications Medication Instructions Recorded Confirmed triamcinolone acetonide 55 mcg 2 spray intranasal DAILY ##0 10/20/17 07/29/25 nasal spray aerosol (Nasacort) cyanocobalamin (vitamin B-12) 1,000 mcg PO QAM 01/10/21 07/29/25 1,000 mcg capsule vit C 250 mg-vit E 90 mg-zinc 40 1 tab PO BID 01/10/21 07/29/25 mg-copper 1 [id number] capsule (PreserVision AREDS-2) cholecalciferol (vitamin D3) 25 1,000 unit PO QAM 05/29/21 07/29/25 mcg (1,000 unit) capsule acetaminophen 500 mg capsule 500 mg PO TID PRN Pain 01/06/24 07/29/25 fluorometholone 0.1 % eye 1 drp ophthalmic (eye) Q12H 05/16/25 07/29/25 drops,suspension docusate sodium 100 mg capsule 100 mg PO BID 07/29/25 07/29/25 magnesium chloride 64 mg 64 mg PO HS 07/29/25 07/29/25 (magnesium chloride) tablet,delayed release (Mag 64) ondansetron HCl 4 mg tablet 4 mg PO Q6H PRN NAUSEA/VOMITING 07/29/25 07/29/25 oxycodone 5 mg tablet 5 mg PO QID PRN Pain 07/29/25 07/29/25 peg 400-propylene glycol (PF) 0.4 1 drp OPB QID 07/29/25 07/29/25 %-0.3 % eye drops in a dropperette sennosides 8.6 mg tablet (senna) 8.6 mg PO BID 07/29/25 07/29/25 sodium chloride 0.65 % nasal spray 1 spray intranasal DIRECTED PRN 07/29/25 07/29/25 aerosol (Nasal [place] (sodium Congestion chloride)) Previous Rx's Medication Instructions Recorded sertraline 100 mg tablet (Zoloft) 100 mg PO QPM #90 tabs 12/12/24 omeprazole 20 mg capsule,delayed 20 mg PO BID #180 caps 02/01/25 release mirabegron 25 mg tablet,extended 25 mg PO QAM #90 tabs 02/15/25 release 24 hr (Myrbetriq) alprazolam 0.25 mg tablet (Xanax) 0.25 mg PO UD PRN Anxiety #180 tabs 05/03/25 baclofen 10 mg tablet 10 mg PO QID 90 days #360 tabs 06/02/25 ipratropium bromide 42 mcg (0.06 See Rx Instructions .Route 06/19/25 %) nasal spray .COMPLEX #15 mL carbidopa ER 25 mg-levodopa 100 mg 1 tab PO .COMPLEX #150 tabs 06/28/25 tablet,extended release Results & Data (ED) Vital Signs Vital Signs - 24 hr 07/29/25 13:22 07/29/25 13:51 07/29/25 14:00 Temperature 36.4 C L Temperature Source Oral Pulse Rate 104 H 100 H Pulse Rate from SpO2 Sensor Respiratory Rate 20 30 H Blood Pressure 127/73 105/81 Blood Pressure Mean 91 93 Pulse Oximetry 92 92 Sepsis Recent Fever Within 48 Hours No Sepsis New/Unexplained Change in Mental Status No Sepsis Action Taken by Nursing No Action Required 07/29/25 14:00 07/29/25 14:00 07/29/25 14:00 Temperature Temperature Source Pulse Rate Pulse Rate from SpO2 Sensor Respiratory Rate Blood Pressure 105/81 105/81 105/81 Blood Pressure Mean 93 93 93 Pulse Oximetry Sepsis Recent Fever Within 48 Hours Sepsis New/Unexplained Change in Mental Status Sepsis Action Taken by Nursing 07/29/25 14:00 07/29/25 14:00 07/29/25 14:05 Temperature Temperature Source Pulse Rate 95 H 94 H Pulse Rate from SpO2 Sensor Respiratory Rate 21 Blood Pressure 105/81 Blood Pressure Mean 93 Pulse Oximetry 94 Sepsis Recent Fever Within 48 Hours Sepsis New/Unexplained Change in Mental Status Sepsis Action Taken by Nursing 07/29/25 14:12 07/29/25 14:21 07/29/25 14:30 Temperature Temperature Source Pulse Rate 89 93 H Pulse Rate from SpO2 Sensor Respiratory Rate 24 23 Blood Pressure 121/71 Blood Pressure Mean 85 Pulse Oximetry 91 93 Sepsis Recent Fever Within 48 Hours Sepsis New/Unexplained Change in Mental Status Sepsis Action Taken by Nursing 07/29/25 14:30 07/29/25 14:30 07/29/25 14:30 Temperature Temperature Source Pulse Rate Pulse Rate from SpO2 Sensor Respiratory Rate Blood Pressure 121/71 121/71 121/71 Blood Pressure Mean 85 85 85 Pulse Oximetry Sepsis Recent Fever Within 48 Hours Sepsis New/Unexplained Change in Mental Status Sepsis Action Taken by Nursing 07/29/25 14:30 07/29/25 14:30 07/29/25 14:42 Temperature Temperature Source Pulse Rate 90 91 H Pulse Rate from SpO2 Sensor Respiratory Rate 23 23 Blood Pressure 121/71 Blood Pressure Mean 85 Pulse Oximetry 90 90 Sepsis Recent Fever Within 48 Hours Sepsis New/Unexplained Change in Mental Status Sepsis Action Taken by Nursing 07/29/25 14:51 07/29/25 15:00 07/29/25 15:00 Temperature Temperature Source Pulse Rate 89 Pulse Rate from SpO2 Sensor Respiratory Rate 23 Blood Pressure 122/72 122/72 Blood Pressure Mean 90 90 Pulse Oximetry 91 Sepsis Recent Fever Within 48 Hours Sepsis New/Unexplained Change in Mental Status Sepsis Action Taken by Nursing 07/29/25 15:00 07/29/25 15:00 07/29/25 15:00 Temperature Temperature Source Pulse Rate Pulse Rate from SpO2 Sensor Respiratory Rate Blood Pressure 122/72 122/72 122/72 Blood Pressure Mean 90 90 90 Pulse Oximetry Sepsis Recent Fever Within 48 Hours Sepsis New/Unexplained Change in Mental Status Sepsis Action Taken by Nursing 07/29/25 15:00 07/29/25 15:12 07/29/25 15:21 Temperature Temperature Source Pulse Rate 100 H 93 H 91 H Pulse Rate from SpO2 Sensor Respiratory Rate 20 22 19 Blood Pressure Blood Pressure Mean Pulse Oximetry 93 91 90 Sepsis Recent Fever Within 48 Hours Sepsis New/Unexplained Change in Mental Status Sepsis Action Taken by Nursing 07/29/25 15:30 07/29/25 15:30 07/29/25 15:30 Temperature Temperature Source Pulse Rate 108 H Pulse Rate from SpO2 Sensor Respiratory Rate 36 H Blood Pressure 115/70 115/70 Blood Pressure Mean 72 72 Pulse Oximetry 94 Sepsis Recent Fever Within 48 Hours Sepsis New/Unexplained Change in Mental Status Sepsis Action Taken by Nursing 07/29/25 15:30 07/29/25 15:30 07/29/25 15:30 Temperature Temperature Source Pulse Rate Pulse Rate from SpO2 Sensor Respiratory Rate Blood Pressure 115/70 115/70 115/70 Blood Pressure Mean 72 72 72 Pulse Oximetry Sepsis Recent Fever Within 48 Hours Sepsis New/Unexplained Change in Mental Status Sepsis Action Taken by Nursing 07/29/25 15:42 07/29/25 15:51 07/29/25 16:00 Temperature Temperature Source Pulse Rate 93 H 109 H 104 H Pulse Rate from SpO2 Sensor Respiratory Rate 21 28 H 28 H Blood Pressure Blood Pressure Mean Pulse Oximetry 91 91 93 Sepsis Recent Fever Within 48 Hours Sepsis New/Unexplained Change in Mental Status Sepsis Action Taken by Nursing 07/29/25 16:00 07/29/25 16:00 07/29/25 16:00 Temperature Temperature Source Pulse Rate Pulse Rate from SpO2 Sensor Respiratory Rate Blood Pressure 115/99 115/99 115/99 Blood Pressure Mean 103 103 103 Pulse Oximetry Sepsis Recent Fever Within 48 Hours Sepsis New/Unexplained Change in Mental Status Sepsis Action Taken by Nursing 07/29/25 16:00 07/29/25 16:12 07/29/25 16:21 Temperature Temperature Source Pulse Rate 103 H Pulse Rate from SpO2 Sensor 105 H Respiratory Rate 27 H Blood Pressure 115/99 Blood Pressure Mean 103 Pulse Oximetry 90 93 Sepsis Recent Fever Within 48 Hours Sepsis New/Unexplained Change in Mental Status Sepsis Action Taken by Nursing 07/29/25 16:34 07/29/25 16:34 07/29/25 16:34 Temperature Temperature Source Pulse Rate Pulse Rate from SpO2 Sensor Respiratory Rate Blood Pressure 144/80 H 144/80 H 144/80 H Blood Pressure Mean 89 89 89 Pulse Oximetry Sepsis Recent Fever Within 48 Hours Sepsis New/Unexplained Change in Mental Status Sepsis Action Taken by Nursing 07/29/25 16:34 07/29/25 16:36 07/29/25 16:42 Temperature Temperature Source Pulse Rate 107 H 103 H Pulse Rate from SpO2 Sensor 101 H Respiratory Rate 28 H Blood Pressure 144/80 H Blood Pressure Mean 89 Pulse Oximetry 94 94 Sepsis Recent Fever Within 48 Hours Sepsis New/Unexplained Change in Mental Status Sepsis Action Taken by Nursing 07/29/25 16:51 07/29/25 17:00 07/29/25 17:00 Temperature Temperature Source Pulse Rate 102 H 104 H Pulse Rate from SpO2 Sensor 102 H 104 H Respiratory Rate 30 H 45 H Blood Pressure 140/83 Blood Pressure Mean 108 Pulse Oximetry 95 95 Sepsis Recent Fever Within 48 Hours Sepsis New/Unexplained Change in Mental Status Sepsis Action Taken by Nursing 07/29/25 17:00 07/29/25 17:00 07/29/25 17:00 Temperature Temperature Source Pulse Rate Pulse Rate from SpO2 Sensor Respiratory Rate Blood Pressure 140/83 140/83 140/83 Blood Pressure Mean 108 108 108 Pulse Oximetry Sepsis Recent Fever Within 48 Hours Sepsis New/Unexplained Change in Mental Status Sepsis Action Taken by Nursing 07/29/25 17:00 07/29/25 17:12 07/29/25 17:21 Temperature Temperature Source Pulse Rate 126 H Pulse Rate from SpO2 Sensor 98 H 108 H Respiratory Rate 24 34 H Blood Pressure 140/83 Blood Pressure Mean 108 Pulse Oximetry 95 94 Sepsis Recent Fever Within 48 Hours Sepsis New/Unexplained Change in Mental Status Sepsis Action Taken by Nursing 07/29/25 17:30 07/29/25 17:30 Temperature Temperature Source Pulse Rate 106 H Pulse Rate from SpO2 Sensor Respiratory Rate 20 Blood Pressure 147/87 H Blood Pressure Mean 112 Pulse Oximetry 95 Sepsis Recent Fever Within 48 Hours Sepsis New/Unexplained Change in Mental Status Sepsis Action Taken by Nursing Laboratory Data 07/29/25 13:53 07/29/25 13:53 Lab Results 07/29/25 07/29/25 Range/Units 13:53 Unknown WBC 8.66 (4.8-10.8) K/ul RBC 3.84 L (4.20-5.40) M/uL Hgb 11.4 L (12.0-16.0) g/dL Hct 35.0 L (37.0-47.0) % MCV 91.1 (80.0-100.0) fL MCH 29.7 (25.0-34.0) pg MCHC 32.6 (32.0-36.0) g/dL RDW Std Deviation 45.3 (36.4-46.3) fL RDW Coeff of Kristen 13.6 (11.5-14.5) % Plt Count 432 H (130-400) K/uL MPV 9.9 (9.4-12.4) fL Immature Gran % (Auto) 0.3 % Neut % (Auto) 68.0 % Lymph % (Auto) 22.7 % [place] % (Auto) 8.4 % Eos % (Auto) 0.5 % Baso % (Auto) 0.1 % Neut # (Auto) 5.88 (1.40-6.50) K/uL Lymph # (Auto) 1.97 (1.20-3.40) K/uL [place] # (Auto) 0.73 H (0.11-0.59) K/uL Eos # (Auto) 0.04 (0.00-0.50) K/uL Baso # (Auto) 0.01 (0.00-0.20) K/uL Immature Gran # (Auto) 0.03 (0.01-0.20) K/uL Sodium 138 (136-145) mmol/L Potassium 3.5 (3.5-5.1) mmol/L Chloride 102 (98-107) mmol/L Carbon Dioxide 25 (21-32) mmol/L Anion Gap 11 (3-11) BUN 16 (6-23) mg/dl Creatinine 0.32 L (0.6-1.2) mg/dl Est Cr Clr Drug Dosing 100.7 ml/min eGFR 105.51 BUN/Creatinine Ratio 50.0 H (10-20) Glucose 94 (70-99(Fasting)) mg/dl Calcium 8.8 (8.6-10.3) mg/dl Total Bilirubin 0.6 (0.2-1.0) mg/dl AST 10 L (13-39) U/L ALT 3 L (7-52) U/L Alkaline Phosphatase 88 (34-104) U/L Total Protein 7.0 (6.0-8.3) gm/dl Albumin 4.1 (3.4-5.0) gm/dl Globulin 2.9 (2.5-4.0) gm/dl Albumin/Globulin Ratio 1.4 (0.9-2) TSH 2.906 (0.300-4.500) uIu/ml Urine Color Yellow Urine Appearance Clear (Clear) Urine pH 6.5 (4.5-7.5) Ur Specific [place] 1.021 (1.000-1.030) Urine Protein Trace H (Negative) Urine Glucose (UA) Negative (Negative) Urine Ketones 3+ H (Negative) Urine Blood Negative (Negative) Urine Nitrite Negative (Negative) Urine Bilirubin Negative (Negative) Urine Urobilinogen Negative (Negative) Ur Leukocyte Esterase 1+ H (Negative) Urine WBC (Auto) 0-5 (0-5) /hpf Urine RBC (Auto) 0-2 (0-2) /hpf U Hyaline Cast (Auto) 0-2 (0-2) /lpf U Epithel Cells (Auto) 6-10 H (0-2) /hpf Urine Bacteria (Auto) None Seen (None Seen) Urine Comment Imaging Data Radiologist's Impression: Chest X-Ray 07/29/25 14:12 EXAM: Radiograph of the Chest 1 View INDICATION: Weakness TECHNIQUE: Frontal view of the chest. COMPARISON: 07/12/2025 FINDINGS: Lungs and pleural spaces: Stable mild pulmonary edema. Areas of ground glass opacity in the lung bases are no longer present. No pleural effusion or pneumothorax. Heart: Shape and configuration within normal limits allowing for technique. Mediastinum: Normal contour. Bones/joints: No fracture, erosion or dislocation. Soft tissues: No abnormality noted. No radiopaque foreign body noted. Upper abdomen: No abnormality noted. IMPRESSION: Stable mild pulmonary edema with improved basilar aeration. ACT 112: N/A Electronically signed by Kylah Fontaine 07-29-2025 4:08 PM Discharge Plan Visit Data Chief Complaint: Weakness Stated Complaint: WEAKNESS ED Provider: Ger Gatica Discharge Problem: Ambulatory dysfunction, Parkinsonism, Muscle weakness Patient Disposition: Admitted As Inpatient Condition: Fair Discharge Instructions Interventions: ED Discharge Assessment Last Done: 07/29/25 17:34 Forms Stand Alone Forms: My [employer] Prescriptions Prescriptions: No Action triamcinolone acetonide [Nasacort] 55 mcg Aerosol,[place] 2 spray INTRANASAL DAILY Qty: 0 sertraline [Zoloft] 100 mg tablet 100 mg PO QPM Qty: 90 3RF omeprazole 20 mg capsule,delayed release(DR/EC) 20 mg PO BID Qty: 180 1RF alprazolam [Xanax] 0.25 mg tablet 0.25 mg PO UD PRN (Reason: Anxiety) Qty: 180 0RF Rx Instructions: Take 1/2 tablet BID in addition to 1 -2 tablets at bedtime, as needed Ongoing therapy Supervising physician Arnoldo Hernandez MD [facility] [id number] ipratropium bromide 42 mcg (0.06 %) spray,non-aerosol See Rx Instructions .ROUTE .COMPLEX Qty: 15 5RF Dose Instruction: INSTILL 2 SPRAYS INTRANASALLY 2-3 TIMES DAILY ADMINISTER INTO EACH NOSTRIL Rx Instructions: INSTILL 2 SPRAYS INTRANASALLY 2-3 TIMES DAILY ADMINISTER INTO EACH NOSTRIL carbidopa-levodopa 25-100 mg tablet extended release 1 tab PO .COMPLEX Qty: 150 5RF Rx Instructions: 1 tab orally take one tablet 5 times per day; PreserVision AREDS-2 250-90-40-1 mg capsule 1 tab PO BID cyanocobalamin (vitamin B-12) 1,000 mcg capsule 1,000 mcg PO QAM cholecalciferol (vitamin D3) 25 mcg (1,000 unit) capsule 1,000 unit PO QAM acetaminophen 500 mg capsule 500 mg PO TID PRN (Reason: Pain) baclofen 10 mg tablet 10 mg PO QID 90 Days Qty: 360 3RF fluorometholone 0.1 % drops,suspension 1 drp ophthalmic (eye) Q12H Myrbetriq 25 mg tablet extended release 24 hr 25 mg PO QAM Qty: 90 1RF Rx Instructions: TAKE 1 TABLET BY MOUTH EVERY DAY sennosides [senna] 8.6 mg Tablet 8.6 mg PO BID ondansetron HCl [Zofran] 4 mg Tablet 4 mg PO Q6H PRN (Reason: NAUSEA/VOMITING) docusate sodium 100 mg Capsule 100 mg PO BID oxycodone 5 mg tablet 5 mg PO QID PRN (Reason: Pain) Nasal [place] (sodium chloride) 0.65 % Aerosol,[place] 1 spray INTRANASAL DIRECTED PRN (Reason: Congestion) Systane (PF) 0.4-0.3 % Dropperette 1 drp OPB QID magnesium chloride [Mag 64] 64 mg Tablet,Delayed Release (Dr/Ec) 64 mg PO HS Referrals Referrals: Pro,Arnoldo Roth MD [Primary Care Provider] -
[2025-07-29] MEDS ORDERED: ETHAMBUTOL HCL 400 MG TAB PO SCH (16:00)
--- NOTE | 2025-07-29 16:09 | XRay Report ---
EXAM: Radiograph of the Chest 1 View INDICATION: Weakness TECHNIQUE: Frontal view of the chest. COMPARISON: 07/12/2025 FINDINGS: Lungs and pleural spaces: Stable mild pulmonary edema. Areas of ground glass opacity in the lung bases are no longer present. No pleural effusion or pneumothorax. Heart: Shape and configuration within normal limits allowing for technique. Mediastinum: Normal contour. Bones/joints: No fracture, erosion or dislocation. Soft tissues: No abnormality noted. No radiopaque foreign body noted. Upper abdomen: No abnormality noted. IMPRESSION: Stable mild pulmonary edema with improved basilar aeration. ACT 112: N/A Electronically signed by Kylah Fontaine 07-29-2025 4:08 PM
--- NOTE | 2025-07-29 16:21 | History & Physical Report ---
Date of Service July 29, 2025 Assessment & Plan (1) Ambulatory dysfunction: Plan: -multifactorial -Parkinsons disease, idiopathic polyneuropathy, lumbar spinal stenosis, osteoarthritis, chronic pain -Recent discharge from [facility] -PT/OT evaluation (2) Parkinsons disease: Plan: -carbidopa/levodopa (3) Chronic back pain: Plan: -oxycodone -tramadol (4) Depression with anxiety: Plan: -alprazolam -setraline (5) GERD (gastroesophageal reflux disease): Plan: -protonix Plan Heparin SQ History of Present Illness Chief Complaint: weakness Primary Care Provider: Arnoldo Hernandez MD Pt is an 79 y/o female with pmh of parkinsonism, idiopathic polyneuropathy, lumbar spinal stenosis, osteoarthritis, chronic pain, recent discharged from [facility] presents with generalized weakness and inability to ambulate. Pt was discharged earlier this week from [facility] rehab and states she began to feel weak at home and unable take care of herself. In the ER her labs and CXR were unremarkable. Pt does not feel comfortably going home, and is being admitted for PT evaluation for ambulatory dysfunction. Allergies Allergy/AdvReac Type Severity Reaction Status Date / Time latex Allergy Intermediate RASH Verified 07/29/25 16:02 rotigotine [From Neupro] Allergy Intermediate Hives Verified 07/29/25 16:02 grass pollen-perennial rye, Allergy Mild RUNNY NOSE Verified 07/29/25 16:02 standar mold Allergy Mild RUNNY NOSE Verified 07/29/25 16:02 celecoxib [From Celebrex] Allergy Unknown PT DOESN'T Verified 07/29/25 16:02 REMEMBER trihexyphenidyl Allergy Unknown PT DOESN'T Verified 07/29/25 16:02 REMEMBER metoclopramide AdvReac Severe PARKINSONIS Verified 07/29/25 16:02 M aspirin AdvReac Intermediate UPSET Verified 07/29/25 16:02 STOMACH gabapentin AdvReac Intermediate dizziness Verified 07/29/25 16:02 adhesive tape AdvReac Mild irritated Verified 07/29/25 16:02 skin Home Medications Medication Instructions Recorded Confirmed Type triamcinolone acetonide 55 mcg 2 spray intranasal DAILY ##0 10/20/17 07/29/25 H istory nasal spray aerosol (Nasacort) cyanocobalamin (vitamin B-12) 1,000 mcg PO QAM 01/10/21 07/29/25 History 1,000 mcg capsule vit C 250 mg-vit E 90 mg-zinc 40 1 tab PO BID 01/10/21 07/29/25 History mg-copper 1 [id number] capsule (PreserVision AREDS-2) cholecalciferol (vitamin D3) 25 1,000 unit PO QAM 05/29/21 07/29/25 History mcg (1,000 unit) capsule acetaminophen 500 mg capsule 500 mg PO TID PRN Pain 01/06/24 07/29/25 History sertraline 100 mg tablet (Zoloft) 100 mg PO QPM #90 tabs 12/12/24 07/29/25 Rx omeprazole 20 mg capsule,delayed 20 mg PO BID #180 caps 02/01/25 07/29/25 Rx release mirabegron 25 mg tablet,extended 25 mg PO QAM #90 tabs 02/15/25 07/29/25 Rx release 24 hr (Myrbetriq) alprazolam 0.25 mg tablet (Xanax) 0.25 mg PO UD PRN Anxiety #180 tabs 05/03/25 07/29/25 Rx fluorometholone 0.1 % eye 1 drp ophthalmic (eye) Q12H 05/16/25 07/29/25 History drops,suspension baclofen 10 mg tablet 10 mg PO QID 90 days #360 tabs 06/02/25 07/29/25 Rx ipratropium bromide 42 mcg (0.06 See Rx Instructions .Route 06/19/25 07/29/25 Rx %) nasal spray .COMPLEX #15 mL carbidopa ER 25 mg-levodopa 100 mg 1 tab PO .COMPLEX #150 tabs 06/28/25 07/29/25 Rx tablet,extended release docusate sodium 100 mg capsule 100 mg PO BID 07/29/25 07/29/25 History magnesium chloride 64 mg 64 mg PO HS 07/29/25 07/29/25 History (magnesium chloride) tablet,delayed release (Mag 64) ondansetron HCl 4 mg tablet 4 mg PO Q6H PRN NAUSEA/VOMITING 07/29/25 07/29/25 History oxycodone 5 mg tablet 5 mg PO QID PRN Pain 07/29/25 07/29/25 History peg 400-propylene glycol (PF) 0.4 1 drp OPB QID 07/29/25 07/29/25 History %-0.3 % eye drops in a dropperette sennosides 8.6 mg tablet (senna) 8.6 mg PO BID 07/29/25 07/29/25 History sodium chloride 0.65 % nasal spray 1 spray intranasal DIRECTED PRN 07/29/25 07/29/25 History aerosol (Nasal Roosevelt (sodium Congestion chloride)) Past Med/Surg History Problem List (Updated 07/29/25 @ 16:17 by Avery Gibson MD) Ambulatory dysfunction Chronic iron deficiency anemia Coccydynia Trochanteric bursitis of left hip Spinal stenosis of lumbar region Foot pain Chronic pain of lower extremity, bilateral Anemia Right leg swelling Right knee DJD Chronic pain of right knee Knee pain Cerumen impaction Ear pain Post-nasal drip Sinus pressure Chronic sinusitis Anemia, mild Lumbar facet arthropathy Parkinsonism (Chronic) Recurrent urinary tract infection Muscle weakness (Acute) Gastroparesis (Acute) Depression with anxiety (Acute) Idiopathic polyneuropathy Lumbar radiculopathy (Chronic) GERD (gastroesophageal reflux disease) (Chronic) HTN (hypertension) (Chronic) Abnormality of gait due to impairment of balance SOB (shortness of breath) on exertion (Chronic) Abnormal CXR Opacity of lung on imaging study (Chronic) Choking due to food (regurgitated) Dysphagia (Chronic) Bilateral hip pain (Chronic) Abnormal CT of the chest Bronchiectasis (Chronic) Bilateral nephrolithiasis (Chronic) Insomnia (Chronic) Encounter for screening for lipid disorder Osteopenia Impacted cerumen of left ear Leg pain Hip pain Coronary artery calcification Gait abnormality Current use of proton pump inhibitor Venous insufficiency Chronic sinus complaints Chronic sinusitis of both maxillary sinuses Medical History Synovial cyst CURRENT LOWER BACK History of anesthesia reaction WITH BACK SYNOVIAL CYST SX - FACE RED D/T ADHESIVE ON MASK ([place], 2020) Dry eye Macular degeneration Gastroparesis SOB (shortness of breath) on exertion PT REPORTS SOB WITH PAIN Cough OCC - "NOT BADLY" - NON PRODUCTIVE Bronchiectasis AND PSUEDOMONAS PER PT - DR HARGROVE 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 REMOTE HX History of lumbar surgery synovial cyst removal and bone spur S/P epidural steroid injection History of colonoscopy History of left cataract surgery History of right cataract surgery History of tonsillectomy and adenoidectomy History of hysterectomy History of tubal ligation Family History Grandfather (Paternal) Family history of colon cancer Father Heart disease Other Family history of colon cancer in father No family history of adverse response to anesthesia No family history of bleeding disorder Social History Smoking Status: Never smoker Tobacco Type: Cigarettes Age Started Using Tobacco: 19; Age Quit Using Tobacco: 44; packs per day: 2; Second Hand Exposure: No; Do You Dip or Chew Tobacco: No; Hx Alcohol Use: No Hx Substance Use: No Preferred Language: French Communication Ability: Effective Visual Impairment: Limited Hearing Ability: Normal Blue Leather Sorter Required: No Beliefs That Will Affect Care: None marital status: Current Living Situation: Alone current occupational status: retired Feels Safe at Home: Yes Childhood Exposure to Second-Hand Smoke: No Diet: regular caffeine: Yes Dental Care, Regularly: Yes Physical Activity Frequency: Does not Exercise Seatbelt Use: always Sunscreen Use: No Assistive Devices: Glasses and Walker Review of Systems Review of Systems: CONST: Negative for fever, body aches and chills. HENT: Negative for neck pain/stiffness, headache, congestion, sore throat, swelling. EYES: Negative for discharge/pain or vision changes. RESP: Negative for cough/hemoptysis and shortness of breath. CV: Negative chest pain, difficulty breathing, palpitations. ABD: Negative pain, nausea, vomiting. : Negative increase frequency, dysuria, blood in urine or stool. MUSC: Negative for muscle aches, edema. SKIN: Negative rash, lesions/sores. NEURO: Negative headache, dizziness, + generalized weakness. Physical Exam Physical Exam: GENERAL APPEARANCE NAD, activity normal for age, well developed/ well nourished, no cyanosis, pallor, or diaphoresis. EYES lids/conjunctiva normal. EARS/NOSE/THROAT Mucous membranes moist, nares normal, lips/teeth normal uvula midline without oral pharyngeal erythema, exudate or swelling TMs normal bilaterally. No lymphangitis/lymphedema. HEAD/NECK normocephalic atraumatic, no facial trauma, neck is supple. RESPIRATORY respiratory effort normal, speaks in full sentences, no tripod position, no accessory muscle use. Lungs clear to auscultation without rhonchi, wheezes, rales CARDIAC Regular rate and rhythm, no edema. ABDOMINAL Soft, ND/NT. No evidence of fluid wave. No pulsatile masses on exam, rebound tenderness, Engel sign or pain over Mcburney's point. MUSCLES/EXTREMITIES No abnormal range of motion, no swelling. SKIN Warm, pink and dry. No rashes, dermatoses, petechiae or lesions. NEUROLOGICAL Speech is clear and appropriate. Normal level of consciousness. Gait and coordination are normal. 5/5 strength in all extremities. PSYCH Normal mood and affect. Judgement/competence is appropriate Results & Data Results & Data Vital Signs (Past 12 Hours) Vital Signs Temp Pulse Resp BP Pulse Ox 07/29/25 14:05 94 H 07/29/25 13:22 36.4 C L 104 H 20 127/73 92 PG Care Time/CCT Total # of Minutes Spent Total Time Spent with Patient: Total time spent is greater than 50% in coordination of care (as documented) at patient's floor/unit and/or counseling patient: Coding Level of Care Code 65904 INT INP/OBS CARE 2/55MIN Diagnoses Ambulatory dysfunction R26.2 Parkinsons disease G20 Chronic back pain M54.9; G89.29 Depression with anxiety F41.8 GERD (gastroesophageal reflux disease) K21.9
[2025-07-29 16:48] LABS: Appearance Urine Clear (Clear); Bacteria Urine Automated None Seen (None Seen); Cast Urine Automated 0-2 /lpf (0-2); Glucose Urine UA Negative (Negative); RBC Urine Automated 0-2 /hpf (0-2); WBC Urine Automated 0-5 /hpf (0-5)
[2025-07-29] MEDS ORDERED: NICOTINE POLACRILEX 2 MG GUM MT PRN (17:32)
[2025-07-29] MEDS: BACLOFEN 10 MG TAB PO SCH (19:45)
[2025-07-29] MEDS: CARBIDOPA/LEVODOPA 25/100MG EXT REL TAB PO SCH (19:45)
[2025-07-29] MEDS: SERTRALINE HCL 100 MG TABLET PO SCH (20:01)
[2025-07-29] MEDS: SENNA 8.6 MG TAB PO SCH (20:10)
[2025-07-29] MEDS: DOCUSATE SODIUM 100 MG CAP PO SCH (20:10)
[2025-07-29] MEDS ORDERED: NON-FORMULARY MEDICATION (Vit C,E-Zn-Coppr-Lutein-Zeaxan [Preservision Areds-2] 250-90-40- PO SCH (21:00)
[2025-07-29] MEDS: SODIUM CHLORIDE 0.65% NA SOLN 45 ML (OCEAN) PRN (21:42)
[2025-07-29] MEDS: HEPARIN SOD 5,000 UNIT/0.5 ML VIAL SQ SCH (21:43)
[2025-07-30 06:39] LABS: Hematocrit (blood only) 34.5 % (37.0-47.0); Hemoglobin 11.3 g/dL (12.0-16.0); Mean Corpuscular Hemoglobin 29.8 pg (25.0-34.0); Mean Corpuscular Volume 91.0 fL (80.0-100.0); Platelet Count 395 K/uL (130-400); RDW Standard Deviation 46.2 fL (36.4-46.3); Red Blood Count 3.79 M/uL (4.20-5.40); White Blood Count 7.98 K/ul (4.8-10.8)
[2025-07-30 07:17] LABS: Anion Gap 10.0 (3-11); Blood Urea Nitrogen 22.0 mg/dl (6-23); Calcium 8.5 mg/dl (8.6-10.3); Carbon Dioxide 24.0 mmol/L (21-32); Chloride 104.0 mmol/L (98-107); Creatinine Clr Calc Pharmacy 92.1 ml/min; Glucose 89.0 mg/dl (70-99(Fasting)); Potassium 3.5 mmol/L (3.5-5.1); Sodium 138.0 mmol/L (136-145)
[2025-07-30] MEDS: CYANOCOBALAMIN (B-12) 500 MCG TABLET PO SCH (08:28)
[2025-07-30] MEDS: PREGABALIN 50 MG CAP PO SCH (08:29)
[2025-07-30] MEDS: VIBEGRON 75 MG TAB PO SCH (08:29)
--- NOTE | 2025-07-30 09:38 | Hospitalist Progress Note ---
Date of Service July 30, 2025 Assessment & Plan (1) Ambulatory dysfunction: Plan: -multifactorial -Parkinsons disease, idiopathic polyneuropathy, lumbar spinal stenosis, osteoarthritis, chronic pain -Recent discharge from [facility] -PT/OT evaluation (2) Parkinsons disease: Plan: -carbidopa/levodopa (3) Chronic back pain: Plan: -oxycodone -tramadol (4) Depression with anxiety: Plan: -alprazolam -setraline (5) GERD (gastroesophageal reflux disease): Plan: -protonix Plan Heparin SQ Admission and Anticipated Discharge Date Admission Date: July 29, 2025 Subjective No events overnight. Resting comfortably in bed. Review of Systems Review of Systems: CONST: Negative for fever, body aches and chills. HENT: Negative for neck pain/stiffness, headache, congestion, sore throat, swelling. EYES: Negative for discharge/pain or vision changes. RESP: Negative for cough/hemoptysis and shortness of breath. CV: Negative chest pain, difficulty breathing, palpitations. ABD: Negative pain, nausea, vomiting. : Negative increase frequency, dysuria, blood in urine or stool. MUSC: Negative for muscle aches, edema. SKIN: Negative rash, lesions/sores. NEURO: Negative headache, dizziness, + generalized weakness. Physical Exam Physical Exam: GENERAL APPEARANCE NAD, activity normal for age, well developed/ well nourished, no cyanosis, pallor, or diaphoresis. EYES lids/conjunctiva normal. EARS/NOSE/THROAT Mucous membranes moist, nares normal, lips/teeth normal uvula midline without oral pharyngeal erythema, exudate or swelling TMs normal bilaterally. No lymphangitis/lymphedema. HEAD/NECK normocephalic atraumatic, no facial trauma, neck is supple. RESPIRATORY respiratory effort normal, speaks in full sentences, no tripod position, no accessory muscle use. Lungs clear to auscultation without rhonchi, wheezes, rales CARDIAC Regular rate and rhythm, no edema. ABDOMINAL Soft, ND/NT. No evidence of fluid wave. No pulsatile masses on exam, rebound tenderness, Engel sign or pain over Mcburney's point. MUSCLES/EXTREMITIES No abnormal range of motion, no swelling. SKIN Warm, pink and dry. No rashes, dermatoses, petechiae or lesions. NEUROLOGICAL Speech is clear and appropriate. Normal level of consciousness. Gait and coordination are normal. 5/5 strength in all extremities. PSYCH Normal mood and affect. Judgement/competence is appropriate Results & Data Results & Data Vital Signs (Past 12 Hours) Vital Signs Temp Pulse Resp BP Pulse Ox O2 Del Method 07/30/25 06:57 36.8 C 95 H 16 125/70 92 Room Air 07/29/25 22:02 36.2 C L 102 H 16 120/69 94 Room Air PG Care Time/CCT Total # of Minutes Spent Total Time Spent with Patient: Total time spent is greater than 50% in coordination of care (as documented) at patient's floor/unit and/or counseling patient: Coding Level of Care Code 41935 SUB INP/OBS CARE 2/35MIN Diagnoses Ambulatory dysfunction R26.2 Parkinsons disease G20 Chronic back pain M54.9; G89.29 Depression with anxiety F41.8 GERD (gastroesophageal reflux disease) K21.9
[2025-07-30] MEDS: FLUTICASONE PROPIONATE NA SPR 16 GM BTL SCH (11:15)
[2025-07-30] MEDS: ACETAMINOPHEN 325 MG TAB PO PRN (19:25)
[2025-07-31 06:03] LABS: Hematocrit (blood only) 31.9 % (37.0-47.0); Hemoglobin 10.7 g/dL (12.0-16.0); Mean Corpuscular Hemoglobin 30.6 pg (25.0-34.0); Mean Corpuscular Volume 91.1 fL (80.0-100.0); Platelet Count 333 K/uL (130-400); RDW Standard Deviation 45.7 fL (36.4-46.3); Red Blood Count 3.50 M/uL (4.20-5.40); White Blood Count 6.52 K/ul (4.8-10.8)
[2025-07-31 06:26] LABS: Anion Gap 7.0 (3-11); Blood Urea Nitrogen 21.0 mg/dl (6-23); Calcium 8.6 mg/dl (8.6-10.3); Carbon Dioxide 29.0 mmol/L (21-32); Chloride 103.0 mmol/L (98-107); Creatinine Clr Calc Pharmacy 97.7 ml/min; Glucose 105.0 mg/dl (70-99(Fasting)); Potassium 3.4 mmol/L (3.5-5.1); Sodium 139.0 mmol/L (136-145)
[2025-07-31] MEDS: ONDANSETRON INJ 2 MG/ML 2 ML VIAL IV PRN (06:27)
--- NOTE | 2025-07-31 10:34 | Electrocardiogram Report ---
Test Reason : Blood Pressure : */* mmHG Vent. Rate : 99 BPM Atrial Rate : 99 BPM P-R Int : 144 ms QRS Dur : 78 ms QT Int : 364 ms P-R-T Axes : 61 -25 56 degrees QTcB Int : 467 ms Normal sinus rhythm RSR' or QR pattern in V1 suggests right ventricular conduction delay Inferior infarct , age undetermined Cannot rule out Anterior infarct (cited on or before 12-Jul-2025) Abnormal ECG When compared with ECG of 12-Jul-2025 16:25, No significant change was found Confirmed by Liza Vitale ([id number]) on 07/31/2025 10:33:59 AM Referred By: REFERRED SELF Confirmed By: Liza Vitale
[2025-07-31] MEDS: IPRATROPIUM BROMIDE NASAL SPRAY 0.06% 15ML PRN (11:52)
--- NOTE | 2025-07-31 13:53 | Hospitalist Progress Note ---
Date of Service July 31, 2025 Assessment & Plan (1) Ambulatory dysfunction: Plan: -multifactorial -Parkinsons disease, idiopathic polyneuropathy, lumbar spinal stenosis, osteoarthritis, chronic pain and recent TBI with subdural hematoma -Outpatient neurologist is Dr. Vazquez -Recent discharge from [facility]: She has follow-up with [place] [facility] with head CT prior to follow-up appointment -PT/OT evaluation (2) Parkinsons disease: Plan: -carbidopa/levodopa (3) Chronic back pain: Plan: -oxycodone as needed -tramadol as needed -Baclofen 10 mg 4 times a day -Pregabalin 50 mg p.o. daily (4) Depression with anxiety: Plan: -alprazolam -setraline (5) GERD (gastroesophageal reflux disease): Plan: -protonix Plan DVT prophylaxis: Heparin subcutaneous CODE STATUS: Full code Disposition: Discharge planning to rehab when bed available Admission and Anticipated Discharge Date Admission Date: July 29, 2025 Subjective Patient seen and examined She is concerned about going home and wants to go to rehab She is eager to meet with case management She denies any chest pain or shortness of breath She denies any headache, dizziness, lightheadedness She says she worked with PT and did well initially but subsequent visit she felt unsteady and hence does not feel safe going home Physical Exam Physical Exam: General: No acute distress Psych: Awake and alert HEENT: Anicteric sclera, moist oral mucosa CVS: Regular rate and rhythm Lungs: Bilateral air entry, no wheezing noted Abdomen: Soft, nontender, no rebound, no guarding Ext: No lower extremity edema, no calf tenderness Neuro: No focal motor deficits noted Results & Data Results & Data Vital Signs (Past 12 Hours) Vital Signs Temp Pulse Resp BP Pulse Ox O2 Del Method 07/31/25 07:02 36.7 C 94 H 16 123/70 92 Room Air Laboratory Results Laboratory Results - last 24 hr 07/31/25 05:26 WBC 6.52 RBC 3.50 L Hgb 10.7 L Hct 31.9 L MCV 91.1 MCH 30.6 MCHC 33.5 RDW Std Deviation 45.7 RDW Coeff of Kristen 13.7 Plt Count 333 MPV 9.7 Sodium 139 Potassium 3.4 L Chloride 103 Carbon Dioxide 29 Anion Gap 7 BUN 21 Creatinine 0.33 L Est Cr Clr Drug Dosing 97.7 eGFR 104.74 BUN/Creatinine Ratio 63.6 H Glucose 105 H Calcium 8.6 PG Care Time/CCT Total # of Minutes Spent Total Time Spent with Patient: Total time spent is greater than 50% in coordination of care (as documented) at patient's floor/unit and/or counseling patient: Coding Level of Care Code 57333 SUB INP/OBS CARE 2/35MIN Diagnoses Ambulatory dysfunction R26.2 Parkinsons disease G20 Chronic back pain M54.9; G89.29 Depression with anxiety F41.8 GERD (gastroesophageal reflux disease) K21.9
[2025-07-31] MEDS: POTASSIUM CHLORIDE CRTAB 20 MEQ TABCR PO STA (20:19)
[2025-07-31] MEDS: HEPARIN SOD 5,000 UNIT/0.5 ML VIAL SQ SCH (20:20)
[2025-07-31] MEDS: guaiFENesin 600 MG TABCR PO PRN (21:31)
[2025-08-01 08:24] LABS: Anion Gap 7.0 (3-11); Blood Urea Nitrogen 16.0 mg/dl (6-23); Calcium 8.4 mg/dl (8.6-10.3); Carbon Dioxide 29.0 mmol/L (21-32); Chloride 103.0 mmol/L (98-107); Creatinine Clr Calc Pharmacy 119.4 ml/min; Glucose 100.0 mg/dl (70-99(Fasting)); Magnesium 1.9 mg/dl (1.7-2.4); Potassium 3.9 mmol/L (3.5-5.1); Sodium 139.0 mmol/L (136-145)
[2025-08-01] MEDS: ACETAMINOPHEN 500 MG TAB PO PRN (08:30)
--- NOTE | 2025-08-01 10:05 | Hospitalist Progress Note ---
Date of Service August 01, 2025 Assessment & Plan (1) Ambulatory dysfunction: Plan: -multifactorial -Parkinsons disease, idiopathic polyneuropathy, lumbar spinal stenosis, osteoarthritis, chronic pain and recent TBI with subdural hematoma -Outpatient neurologist is Dr. Vazquez -Recent discharge from [facility]: She has follow-up with [place] [facility] with head CT prior to follow-up appointment -PT/OT evaluation (2) Parkinsons disease: Plan: -carbidopa/levodopa (3) Chronic back pain: Plan: -oxycodone as needed -tramadol as needed -Baclofen 10 mg 4 times a day -Pregabalin 50 mg p.o. daily (4) Depression with anxiety: Plan: -alprazolam -setraline (5) GERD (gastroesophageal reflux disease): Plan: -protonix Plan DVT prophylaxis: Heparin subcutaneous CODE STATUS: Full code Disposition: Discharge planning to rehab when bed available Admission and Anticipated Discharge Date Admission Date: July 29, 2025 Physical Exam Physical Exam: General: No acute distress Psych: Awake and alert HEENT: Anicteric sclera, moist oral mucosa CVS: Regular rate and rhythm Lungs: Bilateral air entry, no wheezing noted Abdomen: Soft, nontender, no rebound, no guarding Ext: No lower extremity edema, no calf tenderness Neuro: No focal motor deficits noted Results & Data Results & Data Vital Signs (Past 12 Hours) Vital Signs Temp Pulse Resp BP Pulse Ox O2 Del Method 08/01/25 08:31 37.2 C 95 H 18 118/71 85 L Room Air 08/01/25 08:25 Room Air 07/31/25 22:35 36.8 C 99 H 18 117/73 93 Room Air Laboratory Results Laboratory Results - last 24 hr 08/01/25 07:00 Sodium 139 Potassium 3.9 Chloride 103 Carbon Dioxide 29 Anion Gap 7 BUN 16 Creatinine 0.27 L Est Cr Clr Drug Dosing 119.4 eGFR 109.92 BUN/Creatinine Ratio 59.3 H Glucose 100 H Calcium 8.4 L Magnesium 1.9 PG Care Time/CCT Total # of Minutes Spent Total Time Spent with Patient: Total time spent is greater than 50% in coordination of care (as documented) at patient's floor/unit and/or counseling patient: Coding Diagnoses Ambulatory dysfunction R26.2 Parkinsons disease G20 Chronic back pain M54.9; G89.29 Depression with anxiety F41.8 GERD (gastroesophageal reflux disease) K21.9
[2025-08-01] MEDS: MAGNESIUM OXIDE 400 MG TAB PO ONE (11:20)
--- NOTE | 2025-08-01 14:13 | CT Scan Report ---
CT head/brain wo con CLINICAL HISTORY: 79 years-old Female with Headache, follow-up on previous subdural hematoma. Follow -up study in a patient with a left-sided subdural hematoma TECHNIQUE: Multiple axial CT images of the head were obtained without contrast. A dose lowering tech nique was utilized adhering to the principles of ALARA. CT DOSE: 703.85 mGy.cm COMPARISON: 07/12/2025 FINDINGS: Increased size of the subacute left-sided subdural hematoma with worsening mass effect. The extra-axi al collection previously measured up to 7 mm anteriorly, now 11 mm on image 18 series 2. There is pro gressive rightward midline shift, now 8 mm, previously 4 mm. There is partial effacement of the left lateral ventricle. Involutional changes with chronic microvascular ischemic disease. No acute intrapa renchymal hemorrhage, hydrocephalus or acute territorial infarct. The calvarium is intact. The paranasal sinuses, mastoid air cells, and middle ear cavities are sherie r. IMPRESSION: 1. Left-sided subacute subdural hematoma has increased in size from 07/12/2025 causing progressive ma ss effect and worsening rightward midline shift. 2. No acute intra-axial hemorrhage, hydrocephalus or acute territorial infarct. ACT 112: Negative or not required by law. The above report was generated using voice recognition software. It may contain grammatical, syntax o r spelling errors. Electronically signed by: Ned Waters M.D. 08/01/2025 2:11 PM
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
[2025-08-01 15:44] VITALS: BP 152/79; PULSE 99; RESP 19; TEMP 99; O2SAT 93
[2025-08-01] MEDS ORDERED: MAGNESIUM OXIDE 400 MG TAB PO SCH (21:00)
== END 2025-08-01 17:40 | disposition short-term general hospital (02) | DRG 56 ==
LOC: SUATTDRO → ED 13:28 → 3W 15:56 → SUATTDRO 15:56 → 3W 17:34